=== PATIENT | male | born 1970 | race Two or more races ===

== ENCOUNTER 2021-07-02 13:28 | Inpatient (IN) | payer MEDICAID, OTHER ==
[~2021-07-02] VITALS: Ht 172.7 cm; Wt 51.3 kg
[2021-07-02] MEDS ORDERED: SODIUM CHLORIDE 0.9% 1,000 ML IV ONE ×2 (15:00→16:45)
[2021-07-02] MEDS ORDERED: LEVETIRACETAM 500MG PREMIX 100 ML IV ONE (15:00)
[2021-07-02 16:03] LABS: CHLORIDE 120 mEq/L (98-107)
[2021-07-02 16:06] LABS: BASOPHILS % 0.5 % (0.0-2.0); EOSINOPHILS % 0.1 % (0.0-5.0); HEMATOCRIT. 45.9 % (42.0-52.0); HEMOGLOBIN. 15.5 g/dL (14.0-18.0); LYMPHOCYTES % 10.4 % (20.0-50.0); MEAN CORPUSCULAR HEMOGLOBIN 27.9 pg (28.0-32.0); MEAN CORPUSCULAR VOLUME 82.8 fL (80.0-94.0); MEAN PLATELET VOLUME 9.1 fl (7.4-10.4); MONOCYTES % 4.8 % (2.0-8.0); NEUTROPHILS % 84.2 % (40.0-76.0); PLATELET 482 x1000/uL (130-400); RED BLOOD CELL COUNT 5.54 mill/uL (4.7-6.1); RED CELL DISTRIBUTION WIDTH 16.3 % (11.6-14.6)
[2021-07-02 16:07] LABS: ETHANOL BLOOD < 10 mg/dL
[2021-07-03] MEDS ORDERED: ONDANSETRON HCL 4MG/2ML INJ IV PRN (08:00)
[2021-07-03 08:30] VITALS: BP 117/75
[2021-07-03] MEDS: DEXTROSE 5% WATER 1,000 ML IV SCH (11:15)
[2021-07-03 11:25] LABS: BASOPHILS % 0.2 % (0.0-2.0); EOSINOPHILS % 0.8 % (0.0-5.0); HEMATOCRIT. 37.3 % (42.0-52.0); HEMOGLOBIN. 12.6 g/dL (14.0-18.0); LYMPHOCYTES % 10.6 % (20.0-50.0); MEAN CORPUSCULAR HEMOGLOBIN 28.3 pg (28.0-32.0); MEAN PLATELET VOLUME 8.9 fl (7.4-10.4); MONOCYTES % 6.7 % (2.0-8.0); NEUTROPHILS % 81.7 % (40.0-76.0); PLATELET 438 x1000/uL (130-400); RED BLOOD CELL COUNT 4.44 mill/uL (4.7-6.1); RED CELL DISTRIBUTION WIDTH 16.2 % (11.6-14.6)
[2021-07-03] MEDS: LEVETIRACETAM 500MG TABLET PO SCH ×3 (11:41→21:10)
[2021-07-03 12:00] VITALS: BP 103/72
[2021-07-03 16:00] VITALS: BP 102/77
[2021-07-03] MEDS: CEFTRIAXONE 1,000 MG in DEXTROSE 5% WATER 50 ML IV SCH (16:00)
[2021-07-03 17:20] VITALS: BP 110/55
[2021-07-03 17:45] LABS: *AMPHETAMINES SCREEN URINE NEGATIVE (NEGATIVE); *BARBITURATES SCREEN URINE NEGATIVE (NEGATIVE); *BENZODIAZEPINES SCREEN URINE NEGATIVE (NEGATIVE); *COCAINE SCREEN URINE NEGATIVE (NEGATIVE); METHADONE URINE SCREEN NEGATIVE (NEGATIVE); OPIATES URINE SCREEN NEGATIVE (NEGATIVE); PHENCYCLIDINE URINE SCREEN NEGATIVE (NEGATIVE)
[2021-07-03 17:46] LABS: CANNABINOID URINE SCREEN NEGATIVE (NEGATIVE)
[2021-07-03 18:51] VITALS: BP 102/71
[2021-07-03 20:00] VITALS: BP 109/71
[2021-07-04] VITALS: BP 130/73
[2021-07-04 04:00] VITALS: BP 109/64
[2021-07-04] MEDS: DEXTROSE 5% WATER 1,000 ML IV SCH (05:46)
[2021-07-04 08:00] VITALS: BP 117/83
[2021-07-04] MEDS: LEVETIRACETAM 500MG TABLET PO SCH ×2 (09:00→21:32)
[2021-07-04 10:01] LABS: BASOPHILS % 0.4 % (0.0-2.0); EOSINOPHILS % 0.5 % (0.0-5.0); HEMATOCRIT. 43.5 % (42.0-52.0); HEMOGLOBIN. 14.3 g/dL (14.0-18.0); LYMPHOCYTES % 18.3 % (20.0-50.0); MEAN CORPUSCULAR HEMOGLOBIN 28.3 pg (28.0-32.0); MEAN CORPUSCULAR VOLUME 85.9 fL (80.0-94.0); MEAN PLATELET VOLUME 9.3 fl (7.4-10.4); MONOCYTES % 7.4 % (2.0-8.0); NEUTROPHILS % 73.4 % (40.0-76.0); PLATELET 398 x1000/uL (130-400); RED BLOOD CELL COUNT 5.07 mill/uL (4.7-6.1); RED CELL DISTRIBUTION WIDTH 16.4 % (11.6-14.6)
[2021-07-04 10:09] LABS: CHLORIDE 140 mEq/L (98-107)
[2021-07-04 12:00] VITALS: BP 121/81
[2021-07-04] MEDS: CEFTRIAXONE 1,000 MG in DEXTROSE 5% WATER 50 ML IV SCH (15:37)
[2021-07-04 16:00] VITALS: BP 122/86
[2021-07-04] MEDS ORDERED: LORAZEPAM 2MG/ML CPJ IM NR (16:30)
[2021-07-04] MEDS ORDERED: LORAZEPAM 2MG/ML CPJ IV NR (16:30)
[2021-07-04 20:00] VITALS: BP 109/79
[2021-07-05] VITALS: BP 104/80
[2021-07-05 04:00] VITALS: BP 100/71
[2021-07-05] MEDS: DEXTROSE 5% WATER 1,000 ML IV SCH (04:57)
[2021-07-05 07:53] LABS: BASOPHILS % 0.2 % (0.0-2.0); EOSINOPHILS % 1.4 % (0.0-5.0); HEMATOCRIT. 37.9 % (42.0-52.0); HEMOGLOBIN. 11.9 g/dL (14.0-18.0); LYMPHOCYTES % 21.5 % (20.0-50.0); MEAN CORPUSCULAR HEMOGLOBIN 28.7 pg (28.0-32.0); MEAN CORPUSCULAR VOLUME 91.4 fL (80.0-94.0); MONOCYTES % 8.6 % (2.0-8.0); NEUTROPHILS % 68.3 % (40.0-76.0); PLATELET 309 x1000/uL (130-400); RED BLOOD CELL COUNT 4.15 mill/uL (4.7-6.1)
[2021-07-05 08:00] VITALS: BP 119/79
[2021-07-05] MEDS: RISPERIDONE 0.5MG TABLET PO SCH (08:41)
[2021-07-05] MEDS: LEVETIRACETAM 500MG TABLET PO SCH ×2 (08:41→20:42)
[2021-07-05 12:00] VITALS: BP 122/81
[2021-07-05 12:31] LABS: CHLORIDE 121 mEq/L (98-107)
[2021-07-05 16:00] VITALS: BP 96/61
[2021-07-05] MEDS: CEFTRIAXONE 1,000 MG in DEXTROSE 5% WATER 50 ML IV SCH (16:35)
[2021-07-05 20:00] VITALS: BP 100/70
[2021-07-06] VITALS: BP 95/65
[2021-07-06] MEDS: DEXTROSE 5% WATER 1,000 ML IV SCH ×2 (02:19→20:50)
[2021-07-06 04:00] VITALS: BP 92/49
[2021-07-06 05:45] LABS: CHLORIDE 134 mEq/L (98-107)
[2021-07-06 08:00] VITALS: BP 96/65
[2021-07-06] MEDS: RISPERIDONE 0.5MG TABLET PO SCH (09:28)
[2021-07-06] MEDS: LEVETIRACETAM 500MG TABLET PO SCH ×2 (09:28→20:50)
[2021-07-06 12:00] VITALS: BP 109/80
[2021-07-06 16:00] VITALS: BP 93/60
[2021-07-06] MEDS: CEFTRIAXONE 1,000 MG in DEXTROSE 5% WATER 50 ML IV SCH (16:33)
[2021-07-06 20:00] VITALS: BP 95/67
[2021-07-07] VITALS: BP 94/73
[2021-07-07 04:00] VITALS: BP 117/93
[2021-07-07 07:33] LABS: CHLORIDE 126 mEq/L (98-107)
[2021-07-07 07:34] LABS: INR 1.1; PROTHROMBIN TIME 11.3 sec (9.6-11.0)
[2021-07-07 07:50] LABS: BASOPHILS % 0.3 % (0.0-2.0); EOSINOPHILS % 1.8 % (0.0-5.0); HEMATOCRIT. 36.4 % (42.0-52.0); HEMOGLOBIN. 11.7 g/dL (14.0-18.0); LYMPHOCYTES % 18.3 % (20.0-50.0); MEAN CORPUSCULAR HEMOGLOBIN 27.6 pg (28.0-32.0); MEAN PLATELET VOLUME 10.2 fl (7.4-10.4); NEUTROPHILS % 72.6 % (40.0-76.0); PLATELET 285 x1000/uL (130-400); RED BLOOD CELL COUNT 4.23 mill/uL (4.7-6.1); RED CELL DISTRIBUTION WIDTH 16.8 % (11.6-14.6)
[2021-07-07 08:00] VITALS: BP 102/68
[2021-07-07] MEDS: RISPERIDONE 0.5MG TABLET PO SCH (08:04)
[2021-07-07] MEDS: LEVETIRACETAM 500MG TABLET PO SCH ×2 (08:04→21:31)
[2021-07-07 12:00] VITALS: BP 99/68
[2021-07-07] MEDS ORDERED: MIDAZOLAM HCL 5 MG/5 ML VIAL ONE (12:06)
[2021-07-07] MEDS ORDERED: FENTANYL CITRATE/PF 50MCG/ML 2ML VIAL ONE (12:07)
[2021-07-07] MEDS ORDERED: MIDAZOLAM HCL 5 MG/5 ML VIAL IV PRN (12:12)
[2021-07-07] MEDS: CEFTRIAXONE 1,000 MG in DEXTROSE 5% WATER 50 ML IV SCH (14:53)
[2021-07-07] MEDS: DEXTROSE 5% WATER 1,000 ML IV SCH (14:53)
[2021-07-07 16:00] VITALS: BP 111/70
[2021-07-07 20:00] VITALS: BP 109/65
[2021-07-08] VITALS (7 sets, daily range): BP systolic 93–115; BP diastolic 58–78
[2021-07-08 06:28] LABS: CHLORIDE 128 mEq/L (98-107)
[2021-07-08] MEDS: LEVETIRACETAM 500MG TABLET PO SCH ×2 (09:57→20:57)
[2021-07-08] MEDS: RISPERIDONE 0.5MG TABLET PO SCH (09:57)
[2021-07-08] MEDS: DEXTROSE 5% WATER 1,000 ML IV SCH ×2 (11:39→23:27)
[2021-07-08] MEDS: LORAZEPAM 2MG/ML CPJ IV PRN (20:59)
[2021-07-09] VITALS: BP 93/67
[2021-07-09 04:00] VITALS: BP 99/64
[2021-07-09] MEDS: LORAZEPAM 2MG/ML CPJ IV PRN ×2 (05:31→22:08)
[2021-07-09 07:05] LABS: CHLORIDE 116 mEq/L (98-107)
[2021-07-09 07:16] LABS: BASOPHILS % 0.2 % (0.0-2.0); EOSINOPHILS % 2.9 % (0.0-5.0); HEMATOCRIT. 32.7 % (42.0-52.0); HEMOGLOBIN. 10.8 g/dL (14.0-18.0); MEAN CORPUSCULAR HEMOGLOBIN 28.3 pg (28.0-32.0); MEAN CORPUSCULAR VOLUME 85.2 fL (80.0-94.0); MEAN PLATELET VOLUME 10.2 fl (7.4-10.4); MONOCYTES % 7.6 % (2.0-8.0); NEUTROPHILS % 68.3 % (40.0-76.0); PLATELET 213 x1000/uL (130-400); RED BLOOD CELL COUNT 3.83 mill/uL (4.7-6.1); RED CELL DISTRIBUTION WIDTH 16.4 % (11.6-14.6)
[2021-07-09 08:00] VITALS: BP 91/64
[2021-07-09] MEDS: LEVETIRACETAM 500MG TABLET PO SCH ×2 (09:13→22:02)
[2021-07-09] MEDS: RISPERIDONE 1MG TABLET PO SCH (09:13)
[2021-07-09 12:00] VITALS: BP 103/69
[2021-07-09 16:00] VITALS: BP 95/61
[2021-07-09 20:00] VITALS: BP 135/81
[2021-07-10] VITALS: BP 98/62
[2021-07-10] MEDS: ACETAMINOPHEN 325MG TABLET PO PRN (00:44)
[2021-07-10 04:00] VITALS: BP 105/63
[2021-07-10] MEDS: LORAZEPAM 2MG/ML CPJ IV PRN (05:59)
[2021-07-10 08:00] VITALS: BP 102/65
[2021-07-10] MEDS: LEVETIRACETAM 500MG TABLET PO SCH ×2 (09:56→21:50)
[2021-07-10] MEDS: GUAIFENESIN 600MG ER TABLET PO SCH ×2 (09:56→21:50)
[2021-07-10] MEDS: RISPERIDONE 1MG TABLET PO SCH (09:56)
[2021-07-10] MEDS ORDERED: SODIUM CHLORIDE 0.9% 500 ML IV ONE (10:15)
[2021-07-10] MEDS: MIDODRINE HCL 5MG TABLET PO SCH ×3 (10:39→19:21)
[2021-07-10 12:00] VITALS: BP 96/59
[2021-07-10 16:00] VITALS: BP 91/64
[2021-07-10] MEDS ORDERED: THIAMINE HCL 100 MG in SODIUM CHLORIDE 0.9% 49 ML IV SCH (17:00)
[2021-07-10 17:17] LABS: CHLORIDE 111 mEq/L (98-107)
[2021-07-10] MEDS: THIAMINE HCL 100 MG in SODIUM CHLORIDE 0.9% 49 ML IV SCH (19:22)
[2021-07-10 20:00] VITALS: BP 91/61
[2021-07-10] MEDS: LACTULOSE 20G/30ML UDC PO SCH (21:50)
[2021-07-11] VITALS: BP 99/58
[2021-07-11 04:00] VITALS: BP 92/63
[2021-07-11] MEDS: LACTULOSE 20G/30ML UDC PO SCH (07:43)
[2021-07-11 08:00] VITALS: BP 90/58
[2021-07-11 08:31] LABS: BASOPHILS % 0.2 % (0.0-2.0); HEMATOCRIT. 34.2 % (42.0-52.0); HEMOGLOBIN. 11.4 g/dL (14.0-18.0); LYMPHOCYTES % 20.7 % (20.0-50.0); MEAN CORPUSCULAR HEMOGLOBIN 28.1 pg (28.0-32.0); MEAN CORPUSCULAR VOLUME 84.1 fL (80.0-94.0); MEAN PLATELET VOLUME 10.2 fl (7.4-10.4); NEUTROPHILS % 67.1 % (40.0-76.0); PLATELET 255 x1000/uL (130-400); RED BLOOD CELL COUNT 4.07 mill/uL (4.7-6.1); RED CELL DISTRIBUTION WIDTH 15.9 % (11.6-14.6)
[2021-07-11 08:42] LABS: CHLORIDE 113 mEq/L (98-107)
[2021-07-11] MEDS: GUAIFENESIN 600MG ER TABLET PO SCH ×2 (08:52→22:08)
[2021-07-11] MEDS: LEVETIRACETAM 500MG TABLET PO SCH ×2 (08:52→22:02)
[2021-07-11] MEDS: MIDODRINE HCL 5MG TABLET PO SCH ×3 (08:53→17:09)
[2021-07-11 12:00] VITALS: BP 94/59
[2021-07-11 16:00] VITALS: BP 95/64
[2021-07-11] MEDS: THIAMINE HCL 100 MG in SODIUM CHLORIDE 0.9% 49 ML IV SCH (17:09)
[2021-07-11 20:00] VITALS: BP 93/62
[2021-07-12] VITALS: BP 103/64
[2021-07-12 04:00] VITALS: BP 95/64
[2021-07-12] MEDS: GUAIFENESIN 600MG ER TABLET PO SCH (09:39)
[2021-07-12] MEDS: MIDODRINE HCL 5MG TABLET PO SCH ×3 (09:39→17:22)
[2021-07-12] MEDS: LEVETIRACETAM 500MG TABLET PO SCH ×2 (09:39→20:24)
[2021-07-12 10:04] LABS: BASOPHILS % 0.4 % (0.0-2.0); EOSINOPHILS % 2.2 % (0.0-5.0); HEMOGLOBIN. 11.4 g/dL (14.0-18.0); LYMPHOCYTES % 22.2 % (20.0-50.0); MEAN CORPUSCULAR HEMOGLOBIN 28.3 pg (28.0-32.0); MEAN CORPUSCULAR VOLUME 84.6 fL (80.0-94.0); MEAN PLATELET VOLUME 9.6 fl (7.4-10.4); NEUTROPHILS % 65.2 % (40.0-76.0); PLATELET 302 x1000/uL (130-400); RED BLOOD CELL COUNT 4.02 mill/uL (4.7-6.1); RED CELL DISTRIBUTION WIDTH 15.9 % (11.6-14.6)
[2021-07-12 10:18] LABS: CHLORIDE 107 mEq/L (98-107)
[2021-07-12] MEDS ORDERED: GUAIFENESIN 200MG/10ML SUGAR FREE UDC PO PRN (12:00)
[2021-07-12 20:00] VITALS: BP 112/75
[2021-07-12] MEDS: THIAMINE HCL 100 MG in SODIUM CHLORIDE 0.9% 49 ML IV SCH (22:35)
[2021-07-13] VITALS: BP 109/70
[2021-07-13 04:00] VITALS: BP 108/66
[2021-07-13 08:00] VITALS: BP 97/59
[2021-07-13] MEDS: MIDODRINE HCL 5MG TABLET PO SCH ×3 (09:48→17:00)
[2021-07-13] MEDS: LEVETIRACETAM 500MG TABLET PO SCH ×2 (09:49→21:14)
[2021-07-13 12:00] VITALS: BP 101/71
[2021-07-13 16:00] VITALS: BP 107/66
[2021-07-13] MEDS: ENOXAPARIN 30MG/0.3ML SYR SUBCUT SCH (17:00)
[2021-07-13] MEDS: THIAMINE HCL 100 MG in SODIUM CHLORIDE 0.9% 49 ML IV SCH (18:06)
[2021-07-13 19:38] LABS: HEMATOCRIT. 33.3 % (42.0-52.0); HEMOGLOBIN. 11.5 g/dL (14.0-18.0); MEAN CORPUSCULAR HEMOGLOBIN 28.5 pg (28.0-32.0); MEAN CORPUSCULAR VOLUME 82.7 fL (80.0-94.0); MEAN PLATELET VOLUME 9.5 fl (7.4-10.4); PLATELET 310 x1000/uL (130-400); RED BLOOD CELL COUNT 4.02 mill/uL (4.7-6.1); RED CELL DISTRIBUTION WIDTH 15.7 % (11.6-14.6)
[2021-07-13 19:41] LABS: CHLORIDE 104 mEq/L (98-107)
[2021-07-13 20:00] VITALS: BP 130/57
[2021-07-13 22:34] LABS: PLATELET ESTIMATE NORMAL
[2021-07-14] VITALS: BP 101/73
[2021-07-14 04:00] VITALS: BP 92/57
[2021-07-14 08:00] VITALS: BP 98/69
[2021-07-14] MEDS: LEVETIRACETAM 500MG TABLET PO SCH ×2 (09:59→21:19)
[2021-07-14] MEDS: MIDODRINE HCL 5MG TABLET PO SCH ×3 (09:59→17:55)
[2021-07-14 12:00] VITALS: BP 107/70
[2021-07-14 16:00] VITALS: BP 92/66
[2021-07-14] MEDS: ENOXAPARIN 30MG/0.3ML SYR SUBCUT SCH (17:00)
[2021-07-14] MEDS: THIAMINE HCL 100 MG in SODIUM CHLORIDE 0.9% 49 ML IV SCH (17:55)
[2021-07-14 19:27] LABS: CLARITY URINE CLEAR (CLEAR); COLOR URINE YELLOW (YELLOW); KETONES URINE NEGATIVE (NEGATIVE); LEUKOCYTE ESTERASE URINE NEGATIVE (NEGATIVE); NITRITE URINE NEGATIVE (NEGATIVE); OCCULT BLOOD URINE NEGATIVE (NEGATIVE); PH URINE 5.5 (4.5-8.0); PROTEIN URINE NEGATIVE (NEGATIVE); SPECIFIC GRAVITY URINE 1.013 (1.005-1.030)
[2021-07-14 20:00] VITALS: BP 100/65
[2021-07-14] MEDS: ACETAMINOPHEN 325MG TABLET PO PRN (21:19)
[2021-07-15] VITALS (7 sets, daily range): BP systolic 78–100; BP diastolic 49–100
[2021-07-15] MEDS: SODIUM CHLORIDE 0.9% 1,000 ML IV SCH ×3 (00:52→20:53)
[2021-07-15] MEDS: MIDODRINE HCL 5MG TABLET PO SCH ×3 (09:46→17:30)
[2021-07-15] MEDS: LEVETIRACETAM 500MG TABLET PO SCH ×2 (09:46→20:53)
[2021-07-15] MEDS: ENOXAPARIN 30MG/0.3ML SYR SUBCUT SCH (17:26)
[2021-07-16 00:02] VITALS: BP 96/58
[2021-07-16 04:00] VITALS: BP 91/52
[2021-07-16] MEDS: SODIUM CHLORIDE 0.9% 1,000 ML IV SCH ×2 (06:52→18:12)
[2021-07-16 07:58] VITALS: BP 86/53
[2021-07-16] MEDS: LEVETIRACETAM 500MG TABLET PO SCH ×2 (09:49→21:08)
[2021-07-16] MEDS: MIDODRINE HCL 5MG TABLET PO SCH ×3 (09:50→18:12)
[2021-07-16 12:00] VITALS: BP 109/72
[2021-07-16 15:56] VITALS: BP 87/59
[2021-07-16] MEDS: ENOXAPARIN 30MG/0.3ML SYR SUBCUT SCH (18:11)
[2021-07-16 20:00] VITALS: BP 102/69
[2021-07-17] VITALS (7 sets, daily range): BP systolic 82–111; BP diastolic 52–71
[2021-07-17] MEDS: SODIUM CHLORIDE 0.9% 1,000 ML IV SCH ×3 (02:57→23:07)
[2021-07-17 07:11] LABS: BASOPHILS % 0.6 % (0.0-2.0); EOSINOPHILS % 1.9 % (0.0-5.0); HEMATOCRIT. 31.4 % (42.0-52.0); HEMOGLOBIN. 10.6 g/dL (14.0-18.0); LYMPHOCYTES % 31.3 % (20.0-50.0); MEAN CORPUSCULAR HEMOGLOBIN 28.2 pg (28.0-32.0); MEAN CORPUSCULAR VOLUME 83.6 fL (80.0-94.0); MEAN PLATELET VOLUME 9.1 fl (7.4-10.4); MONOCYTES % 7.9 % (2.0-8.0); NEUTROPHILS % 58.3 % (40.0-76.0); PLATELET 339 x1000/uL (130-400); RED BLOOD CELL COUNT 3.76 mill/uL (4.7-6.1); RED CELL DISTRIBUTION WIDTH 15.6 % (11.6-14.6)
[2021-07-17 07:53] LABS: CHLORIDE 107 mEq/L (98-107)
[2021-07-17] MEDS: LEVETIRACETAM 500MG TABLET PO SCH ×2 (09:07→21:21)
[2021-07-17] MEDS: MIDODRINE HCL 5MG TABLET PO SCH ×3 (09:07→17:09)
[2021-07-17] MEDS: ACETAMINOPHEN 325MG TABLET PO PRN (17:09)
[2021-07-17] MEDS: ENOXAPARIN 30MG/0.3ML SYR SUBCUT SCH (17:24)
[2021-07-18] VITALS: BP 96/59
[2021-07-18 04:00] VITALS: BP 99/46
[2021-07-18 06:24] LABS: CHLORIDE 108 mEq/L (98-107)
[2021-07-18 06:42] LABS: BASOPHILS % 0.5 % (0.0-2.0); EOSINOPHILS % 2.1 % (0.0-5.0); HEMATOCRIT. 29.6 % (42.0-52.0); HEMOGLOBIN. 10.4 g/dL (14.0-18.0); LYMPHOCYTES % 33.6 % (20.0-50.0); MEAN CORPUSCULAR HEMOGLOBIN 29.1 pg (28.0-32.0); MEAN CORPUSCULAR VOLUME 82.4 fL (80.0-94.0); MEAN PLATELET VOLUME 8.9 fl (7.4-10.4); MONOCYTES % 9.4 % (2.0-8.0); NEUTROPHILS % 54.4 % (40.0-76.0); PLATELET 333 x1000/uL (130-400); RED BLOOD CELL COUNT 3.59 mill/uL (4.7-6.1); RED CELL DISTRIBUTION WIDTH 15.8 % (11.6-14.6)
[2021-07-18] MEDS: SODIUM CHLORIDE 0.9% 1,000 ML IV SCH ×2 (09:04→18:03)
[2021-07-18] MEDS: LEVETIRACETAM 500MG TABLET PO SCH ×2 (09:07→21:31)
[2021-07-18] MEDS: MIDODRINE HCL 5MG TABLET PO SCH ×3 (09:07→17:20)
[2021-07-18] MEDS: METOCLOPRAMIDE HCL 10MG/2ML VIAL IV SCH ×3 (14:23→23:48)
[2021-07-18] MEDS: ENOXAPARIN 30MG/0.3ML SYR SUBCUT SCH (17:19)
[2021-07-18 20:00] VITALS: BP 97/66
[2021-07-19] VITALS: BP_SYST 111; BP_SYST 114; BP_DIAS 71
[2021-07-19] MEDS: SODIUM CHLORIDE 0.9% 1,000 ML IV SCH ×2 (03:40→16:35)
[2021-07-19 04:00] VITALS: BP 121/72
[2021-07-19] MEDS: METOCLOPRAMIDE HCL 10MG/2ML VIAL IV SCH ×3 (05:13→19:02)
[2021-07-19 08:00] VITALS: BP 97/60
[2021-07-19] MEDS: LEVETIRACETAM 500MG TABLET PO SCH ×2 (08:42→20:48)
[2021-07-19] MEDS: MIDODRINE HCL 5MG TABLET PO SCH ×3 (08:43→16:25)
[2021-07-19] MEDS: ACETAMINOPHEN 325MG TABLET PO PRN (08:44)
[2021-07-19 12:00] VITALS: BP 109/59
[2021-07-19] MEDS: LACTULOSE 20G/30ML UDC PO SCH ×2 (13:43→20:48)
[2021-07-19 16:00] VITALS: BP 98/53
[2021-07-19] MEDS: ENOXAPARIN 30MG/0.3ML SYR SUBCUT SCH (16:25)
[2021-07-19 17:42] LABS: CHLORIDE 108 mEq/L (98-107)
[2021-07-19 17:44] LABS: BASOPHILS % 0.5 % (0.0-2.0); EOSINOPHILS % 2.2 % (0.0-5.0); HEMATOCRIT. 29.1 % (42.0-52.0); HEMOGLOBIN. 9.9 g/dL (14.0-18.0); LYMPHOCYTES % 34.5 % (20.0-50.0); MEAN CORPUSCULAR HEMOGLOBIN 28.3 pg (28.0-32.0); MEAN CORPUSCULAR VOLUME 83.3 fL (80.0-94.0); MEAN PLATELET VOLUME 8.8 fl (7.4-10.4); MONOCYTES % 5.1 % (2.0-8.0); NEUTROPHILS % 57.7 % (40.0-76.0); PLATELET 375 x1000/uL (130-400); RED BLOOD CELL COUNT 3.49 mill/uL (4.7-6.1); RED CELL DISTRIBUTION WIDTH 15.5 % (11.6-14.6)
[2021-07-19 20:00] VITALS: BP 99/65
[2021-07-20] VITALS: BP 114/71
[2021-07-20] MEDS: METOCLOPRAMIDE HCL 10MG/2ML VIAL IV SCH ×4 (00:40→17:15)
[2021-07-20] MEDS: SODIUM CHLORIDE 0.9% 1,000 ML IV SCH ×3 (00:40→21:45)
[2021-07-20 04:00] VITALS: BP 113/75
[2021-07-20] MEDS: LACTULOSE 20G/30ML UDC PO SCH ×3 (05:33→21:44)
[2021-07-20 06:46] LABS: CHLORIDE 109 mEq/L (98-107)
[2021-07-20 07:55] LABS: BASOPHILS % 1.5 % (0.0-2.0); EOSINOPHILS % 2.3 % (0.0-5.0); HEMATOCRIT. 34.6 % (42.0-52.0); HEMOGLOBIN. 11.1 g/dL (14.0-18.0); LYMPHOCYTES % 28.9 % (20.0-50.0); MEAN CORPUSCULAR HEMOGLOBIN 27.9 pg (28.0-32.0); MEAN CORPUSCULAR VOLUME 86.4 fL (80.0-94.0); MEAN PLATELET VOLUME 8.8 fl (7.4-10.4); MONOCYTES % 5.5 % (2.0-8.0); NEUTROPHILS % 61.8 % (40.0-76.0); PLATELET 352 x1000/uL (130-400); RED CELL DISTRIBUTION WIDTH 15.8 % (11.6-14.6)
[2021-07-20 08:00] VITALS: BP 98/65
[2021-07-20] MEDS: LEVETIRACETAM 500MG TABLET PO SCH ×2 (08:52→20:46)
[2021-07-20] MEDS: MIDODRINE HCL 5MG TABLET PO SCH ×3 (08:52→17:15)
[2021-07-20 12:00] VITALS: BP 114/71
[2021-07-20 16:00] VITALS: BP 113/78
[2021-07-20] MEDS: ENOXAPARIN 30MG/0.3ML SYR SUBCUT SCH (17:15)
[2021-07-20 20:00] VITALS: BP 123/77
[2021-07-21] VITALS: BP 122/77
[2021-07-21] MEDS: METOCLOPRAMIDE HCL 10MG/2ML VIAL IV SCH ×5 (00:08→23:33)
[2021-07-21 04:00] VITALS: BP 99/65
[2021-07-21] MEDS: LACTULOSE 20G/30ML UDC PO SCH ×3 (05:16→20:48)
[2021-07-21] MEDS: SODIUM CHLORIDE 0.9% 1,000 ML IV SCH ×2 (05:17→18:13)
[2021-07-21 08:23] VITALS: BP 100/66
[2021-07-21] MEDS: LEVETIRACETAM 500MG TABLET PO SCH ×2 (09:05→20:01)
[2021-07-21] MEDS: MIDODRINE HCL 5MG TABLET PO SCH ×3 (09:05→18:13)
[2021-07-21 12:14] VITALS: BP 109/63
[2021-07-21 16:57] VITALS: BP 95/56
[2021-07-21] MEDS: ENOXAPARIN 30MG/0.3ML SYR SUBCUT SCH (18:12)
[2021-07-21 20:00] VITALS: BP 89/53
[2021-07-22] VITALS: BP 105/66
[2021-07-22] MEDS: SODIUM CHLORIDE 0.9% 1,000 ML IV SCH ×3 (03:00→23:00)
[2021-07-22 04:00] VITALS: BP 97/63
[2021-07-22] MEDS: LACTULOSE 20G/30ML UDC PO SCH ×3 (05:13→21:22)
[2021-07-22] MEDS: METOCLOPRAMIDE HCL 10MG/2ML VIAL IV SCH ×3 (05:14→17:32)
[2021-07-22 08:00] VITALS: BP 114/75
[2021-07-22] MEDS: LEVETIRACETAM 500MG TABLET PO SCH ×2 (09:34→21:22)
[2021-07-22] MEDS: MIDODRINE HCL 5MG TABLET PO SCH ×3 (09:44→17:32)
[2021-07-22 12:00] VITALS: BP 92/53
[2021-07-22 16:00] VITALS: BP 106/63
[2021-07-22] MEDS: ENOXAPARIN 30MG/0.3ML SYR SUBCUT SCH (17:32)
[2021-07-22 20:00] VITALS: BP 94/59
[2021-07-23] VITALS: BP 111/72
[2021-07-23] MEDS: METOCLOPRAMIDE HCL 10MG/2ML VIAL IV SCH ×4 (00:32→17:31)
[2021-07-23 04:00] VITALS: BP 104/71
[2021-07-23] MEDS: LACTULOSE 20G/30ML UDC PO SCH ×3 (05:48→21:56)
[2021-07-23 08:00] VITALS: BP 97/61
[2021-07-23] MEDS: LEVETIRACETAM 500MG TABLET PO SCH ×2 (09:54→21:56)
[2021-07-23] MEDS: MIDODRINE HCL 5MG TABLET PO SCH ×3 (09:54→17:31)
[2021-07-23] MEDS: SODIUM CHLORIDE 0.9% 1,000 ML IV SCH ×2 (10:08→19:03)
[2021-07-23 12:00] VITALS: BP 122/67
[2021-07-23] MEDS: DOCUSATE SODIUM SUGAR FREE 100MG/10ML UDC GT SCH (12:15)
[2021-07-23] MEDS ORDERED: POLYETHYLENE GLYCOL 3350 (17GM) 1 DOSE PACK PO NR (12:15)
[2021-07-23 16:00] VITALS: BP 95/50
[2021-07-23] MEDS: ENOXAPARIN 30MG/0.3ML SYR SUBCUT SCH (17:36)
[2021-07-23 20:00] VITALS: BP 95/64
[2021-07-23] MEDS: SENNOSIDES 8.6MG TABLET GT SCH (21:00)
[2021-07-24] VITALS: BP 111/71
[2021-07-24] MEDS: METOCLOPRAMIDE HCL 10MG/2ML VIAL IV SCH ×4 (00:44→18:13)
[2021-07-24 04:00] VITALS: BP 98/62
[2021-07-24] MEDS: SODIUM CHLORIDE 0.9% 1,000 ML IV SCH ×2 (05:00→16:10)
[2021-07-24 06:24] LABS: BASOPHILS % 0.5 % (0.0-2.0); EOSINOPHILS % 2.7 % (0.0-5.0); HEMOGLOBIN. 9.3 g/dL (14.0-18.0); LYMPHOCYTES % 24.2 % (20.0-50.0); MEAN CORPUSCULAR HEMOGLOBIN 29.2 pg (28.0-32.0); MEAN CORPUSCULAR VOLUME 84.8 fL (80.0-94.0); MEAN PLATELET VOLUME 8.9 fl (7.4-10.4); MONOCYTES % 11.6 % (2.0-8.0); PLATELET 358 x1000/uL (130-400); RED BLOOD CELL COUNT 3.18 mill/uL (4.7-6.1); RED CELL DISTRIBUTION WIDTH 16.2 % (11.6-14.6)
[2021-07-24 06:36] LABS: CHLORIDE 106 mEq/L (98-107)
[2021-07-24] MEDS: LACTULOSE 20G/30ML UDC PO SCH ×3 (06:48→20:53)
[2021-07-24 08:00] VITALS: BP 104/67
[2021-07-24] MEDS: DOCUSATE SODIUM SUGAR FREE 100MG/10ML UDC GT SCH (08:59)
[2021-07-24] MEDS: LEVETIRACETAM 500MG TABLET PO SCH ×2 (08:59→20:53)
[2021-07-24] MEDS: MIDODRINE HCL 5MG TABLET PO SCH ×3 (08:59→18:12)
[2021-07-24] MEDS: LORAZEPAM 2MG/ML CPJ IV PRN (11:16)
[2021-07-24 12:00] VITALS: BP 118/76
[2021-07-24] MEDS ORDERED: HALOPERIDOL LACTATE 5MG/ML VIAL IM NR (14:30)
[2021-07-24 16:00] VITALS: BP 116/74
[2021-07-24] MEDS: ENOXAPARIN 30MG/0.3ML SYR SUBCUT SCH (18:12)
[2021-07-24] MEDS: RISPERIDONE 0.5MG TABLET PO SCH (18:13)
[2021-07-24 20:00] VITALS: BP_SYST 102; BP_SYST 82; BP_DIAS 56; BP_DIAS 72
[2021-07-24] MEDS: SENNOSIDES 8.6MG TABLET GT SCH (20:53)
[2021-07-25] VITALS: BP 100/58
[2021-07-25] MEDS: SODIUM CHLORIDE 0.9% 1,000 ML IV SCH ×3 (01:00→21:44)
[2021-07-25 04:00] VITALS: BP 95/58
[2021-07-25] MEDS: METOCLOPRAMIDE HCL 10MG/2ML VIAL IV SCH ×3 (05:41→12:31)
[2021-07-25] MEDS: LACTULOSE 20G/30ML UDC PO SCH ×3 (05:41→21:43)
[2021-07-25 07:38] LABS: BASOPHILS % 0.2 % (0.0-2.0); EOSINOPHILS % 2.4 % (0.0-5.0); HEMATOCRIT. 29.2 % (42.0-52.0); HEMOGLOBIN. 9.9 g/dL (14.0-18.0); LYMPHOCYTES % 18.3 % (20.0-50.0); MEAN CORPUSCULAR HEMOGLOBIN 28.9 pg (28.0-32.0); MEAN CORPUSCULAR VOLUME 85.3 fL (80.0-94.0); MEAN PLATELET VOLUME 8.4 fl (7.4-10.4); NEUTROPHILS % 69.1 % (40.0-76.0); PLATELET 421 x1000/uL (130-400); RED BLOOD CELL COUNT 3.43 mill/uL (4.7-6.1); RED CELL DISTRIBUTION WIDTH 16.3 % (11.6-14.6)
[2021-07-25 08:00] VITALS: BP 117/70
[2021-07-25] MEDS: DOCUSATE SODIUM SUGAR FREE 100MG/10ML UDC GT SCH (08:22)
[2021-07-25] MEDS: MIDODRINE HCL 5MG TABLET PO SCH ×3 (08:22→18:04)
[2021-07-25] MEDS: RISPERIDONE 0.5MG TABLET PO SCH ×2 (08:22→18:04)
[2021-07-25] MEDS: LEVETIRACETAM 500MG TABLET PO SCH ×2 (08:22→21:43)
[2021-07-25 09:44] LABS: CHLORIDE 106 mEq/L (98-107)
[2021-07-25] MEDS: LORAZEPAM 2MG/ML CPJ IV PRN (11:57)
[2021-07-25 12:00] VITALS: BP 116/67
[2021-07-25 16:00] VITALS: BP 103/70
[2021-07-25] MEDS: ENOXAPARIN 30MG/0.3ML SYR SUBCUT SCH (18:05)
[2021-07-25 20:00] VITALS: BP 82/56
[2021-07-25] MEDS: SENNOSIDES 8.6MG TABLET GT SCH (21:43)
[2021-07-26] MEDS: LACTULOSE 20G/30ML UDC PO SCH ×3 (05:48→21:26)
[2021-07-26] MEDS: SODIUM CHLORIDE 0.9% 1,000 ML IV SCH ×2 (07:24→17:26)
[2021-07-26 08:00] VITALS: BP 101/69
[2021-07-26] MEDS: RISPERIDONE 0.5MG TABLET PO SCH ×2 (08:14→17:26)
[2021-07-26] MEDS: MIDODRINE HCL 5MG TABLET PO SCH ×3 (08:14→17:25)
[2021-07-26] MEDS: LEVETIRACETAM 500MG TABLET PO SCH ×2 (08:14→21:26)
[2021-07-26] MEDS: DOCUSATE SODIUM SUGAR FREE 100MG/10ML UDC GT SCH (08:15)
[2021-07-26] MEDS: LORAZEPAM 2MG/ML CPJ IV PRN (11:55)
[2021-07-26 12:00] VITALS: BP 97/71
[2021-07-26 16:00] VITALS: BP 107/68
[2021-07-26] MEDS: ENOXAPARIN 30MG/0.3ML SYR SUBCUT SCH ×2 (17:00→17:26)
[2021-07-26 20:00] VITALS: BP 110/72
[2021-07-26] MEDS: SENNOSIDES 8.6MG TABLET GT SCH (21:26)
[2021-07-27] VITALS: BP 100/61
[2021-07-27] MEDS: SODIUM CHLORIDE 0.9% 1,000 ML IV SCH ×3 (03:59→23:07)
[2021-07-27 04:00] VITALS: BP 107/69
[2021-07-27] MEDS: LACTULOSE 20G/30ML UDC PO SCH ×3 (05:04→21:20)
[2021-07-27 08:00] VITALS: BP 105/69
[2021-07-27] MEDS: LEVETIRACETAM 500MG TABLET PO SCH ×2 (09:36→21:00)
[2021-07-27] MEDS: DOCUSATE SODIUM SUGAR FREE 100MG/10ML UDC GT SCH (09:36)
[2021-07-27] MEDS: MIDODRINE HCL 5MG TABLET PO SCH ×3 (09:36→17:42)
[2021-07-27] MEDS: RISPERIDONE 0.5MG TABLET PO SCH ×2 (09:37→17:41)
[2021-07-27] MEDS: LORAZEPAM 2MG/ML CPJ IV PRN (11:54)
[2021-07-27 12:00] VITALS: BP 90/52
[2021-07-27 16:00] VITALS: BP 93/57
[2021-07-27] MEDS: ENOXAPARIN 30MG/0.3ML SYR SUBCUT SCH ×2 (17:00→17:58)
[2021-07-27 20:00] VITALS: BP 99/69
[2021-07-27] MEDS: SENNOSIDES 8.6MG TABLET GT SCH (21:00)
[2021-07-28] VITALS: BP 101/69
[2021-07-28 04:00] VITALS: BP 91/50
[2021-07-28] MEDS: LACTULOSE 20G/30ML UDC PO SCH ×3 (05:43→21:56)
[2021-07-28 08:00] VITALS: BP 90/50
[2021-07-28] MEDS: DOCUSATE SODIUM SUGAR FREE 100MG/10ML UDC GT SCH (08:58)
[2021-07-28] MEDS: RISPERIDONE 0.5MG TABLET PO SCH ×2 (08:59→17:27)
[2021-07-28] MEDS: MIDODRINE HCL 5MG TABLET PO SCH ×3 (08:59→17:27)
[2021-07-28] MEDS: LEVETIRACETAM 500MG TABLET PO SCH ×2 (08:59→21:57)
[2021-07-28] MEDS: SODIUM CHLORIDE 0.9% 1,000 ML IV SCH ×2 (08:59→19:06)
[2021-07-28 12:00] VITALS: BP 95/55
[2021-07-28 16:00] VITALS: BP 98/61
[2021-07-28 20:00] VITALS: BP 88/58
[2021-07-28] MEDS: SENNOSIDES 8.6MG TABLET GT SCH (21:56)
[2021-07-29] VITALS: BP 86/54
[2021-07-29 04:00] VITALS: BP 96/64
[2021-07-29] MEDS: LACTULOSE 20G/30ML UDC PO SCH ×3 (06:26→21:53)
[2021-07-29] MEDS: SODIUM CHLORIDE 0.9% 1,000 ML IV SCH ×2 (06:27→15:00)
[2021-07-29 08:14] VITALS: BP 98/62
[2021-07-29] MEDS: DOCUSATE SODIUM SUGAR FREE 100MG/10ML UDC GT SCH (09:27)
[2021-07-29] MEDS: MIDODRINE HCL 5MG TABLET PO SCH ×3 (09:27→18:22)
[2021-07-29] MEDS: LEVETIRACETAM 500MG TABLET PO SCH ×2 (09:27→21:53)
[2021-07-29] MEDS: RISPERIDONE 0.5MG TABLET PO SCH ×2 (09:27→18:22)
[2021-07-29 12:28] VITALS: BP 90/60
[2021-07-29 16:00] VITALS: BP 92/55
[2021-07-29] MEDS: ENOXAPARIN 30MG/0.3ML SYR SUBCUT SCH (18:21)
[2021-07-29 20:00] VITALS: BP 101/64
[2021-07-29] MEDS: SENNOSIDES 8.6MG TABLET GT SCH (21:53)
[2021-07-30] VITALS: BP 92/58
[2021-07-30] MEDS: SODIUM CHLORIDE 0.9% 1,000 ML IV SCH ×3 (01:00→21:35)
[2021-07-30 04:00] VITALS: BP 95/60
[2021-07-30] MEDS: LACTULOSE 20G/30ML UDC PO SCH ×3 (06:00→21:33)
[2021-07-30 06:25] LABS: CHLORIDE 110 mEq/L (98-107)
[2021-07-30 06:52] LABS: BASOPHILS % 0.5 % (0.0-2.0); EOSINOPHILS % 3.4 % (0.0-5.0); HEMATOCRIT. 30.1 % (42.0-52.0); HEMOGLOBIN. 10.1 g/dL (14.0-18.0); LYMPHOCYTES % 26.4 % (20.0-50.0); MEAN CORPUSCULAR HEMOGLOBIN 28.9 pg (28.0-32.0); MEAN CORPUSCULAR VOLUME 85.7 fL (80.0-94.0); MEAN PLATELET VOLUME 8.4 fl (7.4-10.4); MONOCYTES % 8.9 % (2.0-8.0); NEUTROPHILS % 60.8 % (40.0-76.0); PLATELET 434 x1000/uL (130-400); RED BLOOD CELL COUNT 3.51 mill/uL (4.7-6.1); RED CELL DISTRIBUTION WIDTH 16.1 % (11.6-14.6)
[2021-07-30 08:00] VITALS: BP 85/57
[2021-07-30] MEDS: RISPERIDONE 0.5MG TABLET PO SCH ×2 (08:43→16:56)
[2021-07-30] MEDS: LEVETIRACETAM 500MG TABLET PO SCH ×2 (08:43→21:33)
[2021-07-30] MEDS: MIDODRINE HCL 5MG TABLET PO SCH ×3 (08:44→16:57)
[2021-07-30] MEDS: DOCUSATE SODIUM SUGAR FREE 100MG/10ML UDC GT SCH (08:45)
[2021-07-30 12:00] VITALS: BP 94/88
[2021-07-30 16:00] VITALS: BP 93/58
[2021-07-30] MEDS: ENOXAPARIN 30MG/0.3ML SYR SUBCUT SCH (16:56)
[2021-07-30 20:00] VITALS: BP 104/62
[2021-07-30] MEDS: SENNOSIDES 8.6MG TABLET GT SCH (21:33)
[2021-07-31] VITALS: BP 93/55
[2021-07-31 04:00] VITALS: BP 93/63
[2021-07-31] MEDS: LACTULOSE 20G/30ML UDC PO SCH ×3 (06:15→21:02)
[2021-07-31] MEDS: SODIUM CHLORIDE 0.9% 1,000 ML IV SCH ×2 (06:16→16:56)
[2021-07-31 08:00] VITALS: BP 101/65
[2021-07-31] MEDS: LEVETIRACETAM 500MG TABLET PO SCH (08:18)
[2021-07-31] MEDS: RISPERIDONE 0.5MG TABLET PO SCH ×2 (08:18→16:55)
[2021-07-31] MEDS: MIDODRINE HCL 5MG TABLET PO SCH ×3 (08:19→16:55)
[2021-07-31] MEDS: DOCUSATE SODIUM SUGAR FREE 100MG/10ML UDC GT SCH (08:19)
[2021-07-31 12:00] VITALS: BP 96/62
[2021-07-31 16:00] VITALS: BP 97/64
[2021-07-31] MEDS: ENOXAPARIN 30MG/0.3ML SYR SUBCUT SCH (17:00)
[2021-07-31] MEDS ORDERED: POLYETHYLENE GLYCOL 3350 (17GM) 1 DOSE PACK PO SCH (17:15)
[2021-07-31 20:00] VITALS: BP 98/55
[2021-07-31] MEDS: SENNOSIDES 8.6MG TABLET GT SCH (21:02)
[2021-08-01] VITALS: BP 106/66
[2021-08-01] MEDS: SODIUM CHLORIDE 0.9% 1,000 ML IV SCH ×3 (03:00→23:00)
[2021-08-01 04:00] VITALS: BP 106/70
[2021-08-01] MEDS: LACTULOSE 20G/30ML UDC PO SCH ×4 (05:18→23:00)
[2021-08-01 08:00] VITALS: BP 91/60
[2021-08-01] MEDS: DOCUSATE SODIUM SUGAR FREE 100MG/10ML UDC GT SCH (09:00)
[2021-08-01] MEDS: MIDODRINE HCL 5MG TABLET PO SCH ×3 (09:11→18:21)
[2021-08-01] MEDS: RISPERIDONE 0.5MG TABLET PO SCH ×2 (09:11→18:23)
[2021-08-01 10:20] LABS: CHLORIDE 106 mEq/L (98-107)
[2021-08-01 10:27] LABS: BASOPHILS % 1.3 % (0.0-2.0); EOSINOPHILS % 2.4 % (0.0-5.0); HEMATOCRIT. 31.5 % (42.0-52.0); HEMOGLOBIN. 10.6 g/dL (14.0-18.0); LYMPHOCYTES % 19.2 % (20.0-50.0); MEAN CORPUSCULAR HEMOGLOBIN 28.9 pg (28.0-32.0); MEAN CORPUSCULAR VOLUME 86.1 fL (80.0-94.0); MEAN PLATELET VOLUME 8.6 fl (7.4-10.4); MONOCYTES % 12.2 % (2.0-8.0); NEUTROPHILS % 64.9 % (40.0-76.0); PLATELET 401 x1000/uL (130-400); RED BLOOD CELL COUNT 3.66 mill/uL (4.7-6.1); RED CELL DISTRIBUTION WIDTH 16.3 % (11.6-14.6)
[2021-08-01 12:00] VITALS: BP 105/66
[2021-08-01 16:00] VITALS: BP 108/63
[2021-08-01] MEDS: ENOXAPARIN 30MG/0.3ML SYR SUBCUT SCH (18:20)
[2021-08-01 20:00] VITALS: BP 92/57
[2021-08-01] MEDS: SENNOSIDES 8.6MG TABLET GT SCH ×2 (21:00→23:00)
[2021-08-02] VITALS: BP 99/59
[2021-08-02 04:00] VITALS: BP 105/69
[2021-08-02] MEDS: LACTULOSE 20G/30ML UDC PO SCH ×4 (05:56→20:36)
[2021-08-02 08:14] VITALS: BP 91/51
[2021-08-02] MEDS: DOCUSATE SODIUM SUGAR FREE 100MG/10ML UDC GT SCH (09:12)
[2021-08-02] MEDS: RISPERIDONE 0.5MG TABLET PO SCH ×2 (09:12→18:34)
[2021-08-02] MEDS: SODIUM CHLORIDE 0.9% 1,000 ML IV SCH ×2 (09:12→19:32)
[2021-08-02] MEDS: MIDODRINE HCL 5MG TABLET PO SCH ×3 (09:12→18:34)
[2021-08-02 12:00] VITALS: BP 91/58
[2021-08-02 16:00] VITALS: BP 97/60
[2021-08-02] MEDS: ENOXAPARIN 30MG/0.3ML SYR SUBCUT SCH (18:34)
[2021-08-02 20:00] VITALS: BP 103/67
[2021-08-02] MEDS: SENNOSIDES 8.6MG TABLET GT SCH (20:36)
[2021-08-03] VITALS: BP 95/56
[2021-08-03] MEDS: SODIUM CHLORIDE 0.9% 1,000 ML IV SCH ×3 (04:30→21:31)
[2021-08-03] MEDS: LACTULOSE 20G/30ML UDC PO SCH ×3 (05:47→21:26)
[2021-08-03 08:00] VITALS: BP 96/62
[2021-08-03] MEDS: DOCUSATE SODIUM SUGAR FREE 100MG/10ML UDC GT SCH (09:00)
[2021-08-03] MEDS: RISPERIDONE 0.5MG TABLET PO SCH ×2 (09:37→17:09)
[2021-08-03] MEDS: MIDODRINE HCL 5MG TABLET PO SCH ×3 (09:37→17:09)
[2021-08-03 12:00] VITALS: BP 93/57
[2021-08-03 16:00] VITALS: BP 86/59
[2021-08-03] MEDS: ENOXAPARIN 30MG/0.3ML SYR SUBCUT SCH ×2 (17:00→17:10)
[2021-08-03 20:00] VITALS: BP 101/56
[2021-08-03] MEDS: SENNOSIDES 8.6MG TABLET GT SCH (21:26)
[2021-08-04] VITALS: BP 108/66
[2021-08-04] MEDS: SODIUM CHLORIDE 0.9% 1,000 ML IV SCH ×4 (00:54→21:07)
[2021-08-04 04:00] VITALS: BP 98/65
[2021-08-04] MEDS: LACTULOSE 20G/30ML UDC PO SCH ×3 (05:11→21:07)
[2021-08-04 08:00] VITALS: BP 94/64
[2021-08-04] MEDS: DOCUSATE SODIUM SUGAR FREE 100MG/10ML UDC GT SCH (09:00)
[2021-08-04] MEDS: MIDODRINE HCL 5MG TABLET PO SCH ×3 (09:01→17:21)
[2021-08-04] MEDS: RISPERIDONE 0.5MG TABLET PO SCH ×2 (09:01→17:21)
[2021-08-04 12:00] VITALS: BP 102/67
[2021-08-04 16:00] VITALS: BP 102/62
[2021-08-04] MEDS: ENOXAPARIN 30MG/0.3ML SYR SUBCUT SCH (17:21)
[2021-08-04 20:00] VITALS: BP 115/66
[2021-08-04] MEDS: SENNOSIDES 8.6MG TABLET GT SCH (21:00)
[2021-08-05] VITALS: BP 108/63
[2021-08-05 04:00] VITALS: BP 106/66
[2021-08-05] MEDS: SODIUM CHLORIDE 0.9% 1,000 ML IV SCH ×2 (04:14→17:38)
[2021-08-05] MEDS: LACTULOSE 20G/30ML UDC PO SCH ×3 (06:20→21:44)
[2021-08-05 08:00] VITALS: BP 107/62
[2021-08-05] MEDS: DOCUSATE SODIUM SUGAR FREE 100MG/10ML UDC GT SCH (09:31)
[2021-08-05] MEDS: MIDODRINE HCL 5MG TABLET PO SCH ×3 (09:31→17:34)
[2021-08-05] MEDS: RISPERIDONE 0.5MG TABLET PO SCH ×2 (09:32→17:34)
[2021-08-05 12:00] VITALS: BP 105/61
[2021-08-05 16:00] VITALS: BP 92/65
[2021-08-05] MEDS: ENOXAPARIN 30MG/0.3ML SYR SUBCUT SCH (17:39)
[2021-08-05 20:00] VITALS: BP 106/64
[2021-08-05] MEDS: SENNOSIDES 8.6MG TABLET GT SCH (21:00)
[2021-08-06] VITALS: BP 98/53
[2021-08-06 04:00] VITALS: BP 117/75
[2021-08-06] MEDS: LACTULOSE 20G/30ML UDC PO SCH ×3 (04:29→22:00)
[2021-08-06 08:00] VITALS: BP 106/61
[2021-08-06] MEDS: DOCUSATE SODIUM SUGAR FREE 100MG/10ML UDC GT SCH (09:00)
[2021-08-06] MEDS: RISPERIDONE 0.5MG TABLET PO SCH ×2 (09:39→16:23)
[2021-08-06] MEDS: MIDODRINE HCL 5MG TABLET PO SCH ×3 (09:40→16:23)
[2021-08-06 12:00] VITALS: BP 98/50
[2021-08-06] MEDS: SODIUM CHLORIDE 0.9% 1,000 ML IV SCH (12:27)
[2021-08-06 16:00] VITALS: BP 119/71
[2021-08-06] MEDS: ENOXAPARIN 30MG/0.3ML SYR SUBCUT SCH (16:24)
[2021-08-06 20:00] VITALS: BP 119/73
[2021-08-06] MEDS: SENNOSIDES 8.6MG TABLET GT SCH (21:00)
[2021-08-07] VITALS: BP 98/49
[2021-08-07 04:00] VITALS: BP 97/64
[2021-08-07] MEDS: LACTULOSE 20G/30ML UDC PO SCH ×3 (05:50→22:00)
[2021-08-07 08:00] VITALS: BP 118/67
[2021-08-07] MEDS: SODIUM CHLORIDE 0.9% 1,000 ML IV SCH ×2 (08:50→18:13)
[2021-08-07] MEDS: RISPERIDONE 0.5MG TABLET PO SCH ×2 (08:51→18:12)
[2021-08-07] MEDS: DOCUSATE SODIUM SUGAR FREE 100MG/10ML UDC GT SCH (08:51)
[2021-08-07] MEDS: MIDODRINE HCL 5MG TABLET PO SCH ×3 (08:51→18:13)
[2021-08-07 12:00] VITALS: BP 107/66
[2021-08-07 16:00] VITALS: BP 103/63
[2021-08-07] MEDS: ENOXAPARIN 30MG/0.3ML SYR SUBCUT SCH (18:12)
[2021-08-07 20:00] VITALS: BP 98/64
[2021-08-07] MEDS: SENNOSIDES 8.6MG TABLET GT SCH (21:00)
[2021-08-08] VITALS: BP 97/56
[2021-08-08 04:00] VITALS: BP 114/75
[2021-08-08] MEDS: SODIUM CHLORIDE 0.9% 1,000 ML IV SCH (04:41)
[2021-08-08] MEDS: LACTULOSE 20G/30ML UDC PO SCH ×3 (04:41→21:36)
[2021-08-08 06:46] LABS: BASOPHILS % 0.3 % (0.0-2.0); EOSINOPHILS % 2.4 % (0.0-5.0); HEMATOCRIT. 33.8 % (42.0-52.0); HEMOGLOBIN. 11.6 g/dL (14.0-18.0); LYMPHOCYTES % 18.2 % (20.0-50.0); MEAN CORPUSCULAR HEMOGLOBIN 28.9 pg (28.0-32.0); MEAN CORPUSCULAR VOLUME 84.1 fL (80.0-94.0); MEAN PLATELET VOLUME 8.2 fl (7.4-10.4); MONOCYTES % 10.8 % (2.0-8.0); NEUTROPHILS % 68.3 % (40.0-76.0); PLATELET 412 x1000/uL (130-400); RED BLOOD CELL COUNT 4.01 mill/uL (4.7-6.1); RED CELL DISTRIBUTION WIDTH 15.7 % (11.6-14.6)
[2021-08-08 07:05] LABS: CHLORIDE 105 mEq/L (98-107)
[2021-08-08 08:00] VITALS: BP 99/55
[2021-08-08] MEDS: DOCUSATE SODIUM SUGAR FREE 100MG/10ML UDC GT SCH (09:00)
[2021-08-08] MEDS: MIDODRINE HCL 5MG TABLET PO SCH ×3 (09:32→17:52)
[2021-08-08] MEDS: RISPERIDONE 0.5MG TABLET PO SCH ×2 (09:32→17:40)
[2021-08-08 16:00] VITALS: BP 108/76
[2021-08-08] MEDS: ENOXAPARIN 30MG/0.3ML SYR SUBCUT SCH (17:40)
[2021-08-08 20:00] VITALS: BP 112/75
[2021-08-08] MEDS: SENNOSIDES 8.6MG TABLET GT SCH (21:00)
[2021-08-09] VITALS (7 sets, daily range): BP systolic 93–112; BP diastolic 59–88
[2021-08-09] MEDS: LACTULOSE 20G/30ML UDC PO SCH ×3 (05:11→21:49)
[2021-08-09] MEDS: MIDODRINE HCL 5MG TABLET PO SCH ×3 (09:08→17:32)
[2021-08-09] MEDS: DOCUSATE SODIUM SUGAR FREE 100MG/10ML UDC GT SCH (09:08)
[2021-08-09] MEDS: RISPERIDONE 0.5MG TABLET PO SCH ×2 (09:08→17:32)
[2021-08-09] MEDS: ENOXAPARIN 30MG/0.3ML SYR SUBCUT SCH (17:37)
[2021-08-09] MEDS: SENNOSIDES 8.6MG TABLET GT SCH (21:00)
[2021-08-10] VITALS: BP 94/60
[2021-08-10 04:00] VITALS: BP 100/60
[2021-08-10] MEDS: LACTULOSE 20G/30ML UDC PO SCH ×4 (05:40→20:59)
[2021-08-10] MEDS: SODIUM CHLORIDE 0.9% 1,000 ML IV SCH ×3 (07:00→22:53)
[2021-08-10 08:00] VITALS: BP 97/63
[2021-08-10] MEDS: DOCUSATE SODIUM SUGAR FREE 100MG/10ML UDC GT SCH (09:47)
[2021-08-10] MEDS: RISPERIDONE 0.5MG TABLET PO SCH ×2 (09:48→17:11)
[2021-08-10] MEDS: MIDODRINE HCL 5MG TABLET PO SCH ×3 (09:48→17:11)
[2021-08-10 11:38] VITALS: BP 102/68
[2021-08-10 16:00] VITALS: BP 103/72
[2021-08-10] MEDS: ENOXAPARIN 30MG/0.3ML SYR SUBCUT SCH (17:12)
[2021-08-10] MEDS: ACETAMINOPHEN 325MG TABLET PO PRN (17:48)
[2021-08-10 20:00] VITALS: BP 100/57
[2021-08-10] MEDS: SENNOSIDES 8.6MG TABLET GT SCH (20:59)
[2021-08-11] VITALS: BP 98/61
[2021-08-11 04:00] VITALS: BP 110/78
[2021-08-11] MEDS: LACTULOSE 20G/30ML UDC PO SCH ×3 (05:21→22:00)
[2021-08-11 08:00] VITALS: BP 111/74
[2021-08-11] MEDS: DOCUSATE SODIUM SUGAR FREE 100MG/10ML UDC GT SCH (08:19)
[2021-08-11] MEDS: MIDODRINE HCL 5MG TABLET PO SCH ×3 (10:11→17:00)
[2021-08-11] MEDS: RISPERIDONE 0.5MG TABLET PO SCH ×2 (10:11→17:00)
[2021-08-11 12:00] VITALS: BP 114/71
[2021-08-11] MEDS: SODIUM CHLORIDE 0.9% 1,000 ML IV SCH ×2 (12:24→23:00)
[2021-08-11 16:00] VITALS: BP 123/72
[2021-08-11] MEDS: ENOXAPARIN 30MG/0.3ML SYR SUBCUT SCH (17:00)
[2021-08-11 20:00] VITALS: BP 107/70
[2021-08-11] MEDS: SENNOSIDES 8.6MG TABLET GT SCH (21:00)
[2021-08-12] VITALS: BP 97/54
[2021-08-12 04:00] VITALS: BP 112/64
[2021-08-12] MEDS: LACTULOSE 20G/30ML UDC PO SCH ×3 (06:00→21:27)
[2021-08-12 08:00] VITALS: BP 106/56
[2021-08-12] MEDS: DOCUSATE SODIUM SUGAR FREE 100MG/10ML UDC GT SCH (09:00)
[2021-08-12] MEDS: RISPERIDONE 0.5MG TABLET PO SCH ×2 (09:40→17:48)
[2021-08-12] MEDS: MIDODRINE HCL 5MG TABLET PO SCH ×3 (09:40→17:48)
[2021-08-12 12:00] VITALS: BP 128/63
[2021-08-12 16:00] VITALS: BP 117/59
[2021-08-12] MEDS: ENOXAPARIN 30MG/0.3ML SYR SUBCUT SCH ×2 (17:00→17:48)
[2021-08-12 20:00] VITALS: BP 93/52
[2021-08-12] MEDS: SENNOSIDES 8.6MG TABLET GT SCH ×2 (21:27→21:30)
[2021-08-13] VITALS: BP 100/57
[2021-08-13 04:00] VITALS: BP 102/67
[2021-08-13 08:00] VITALS: BP 90/57
[2021-08-13] MEDS: DOCUSATE SODIUM SUGAR FREE 100MG/10ML UDC GT SCH (09:14)
[2021-08-13] MEDS: RISPERIDONE 0.5MG TABLET PO SCH ×2 (09:15→17:54)
[2021-08-13] MEDS: MIDODRINE HCL 5MG TABLET PO SCH ×3 (09:15→17:55)
[2021-08-13 12:00] VITALS: BP 99/64
[2021-08-13] MEDS: LACTULOSE 20G/30ML UDC PO SCH ×2 (12:34→20:42)
[2021-08-13 16:00] VITALS: BP 111/73
[2021-08-13] MEDS: ENOXAPARIN 30MG/0.3ML SYR SUBCUT SCH (17:54)
[2021-08-13 20:00] VITALS: BP 104/60
[2021-08-14 04:00] VITALS: BP 99/70
[2021-08-14] MEDS: LACTULOSE 20G/30ML UDC PO SCH ×3 (06:00→22:00)
[2021-08-14 08:00] VITALS: BP 101/62
[2021-08-14] MEDS: DOCUSATE SODIUM SUGAR FREE 100MG/10ML UDC GT SCH (09:40)
[2021-08-14] MEDS: RISPERIDONE 0.5MG TABLET PO SCH ×2 (09:40→18:24)
[2021-08-14] MEDS: MIDODRINE HCL 5MG TABLET PO SCH ×3 (09:40→17:00)
[2021-08-14 12:00] VITALS: BP 114/73
[2021-08-14 14:20] VITALS: BP 146/80
[2021-08-14] MEDS: ENOXAPARIN 30MG/0.3ML SYR SUBCUT SCH (17:00)
[2021-08-14 20:00] VITALS: BP 118/76
[2021-08-14] MEDS: SENNOSIDES 8.6MG TABLET GT SCH (21:00)
[2021-08-15] VITALS: BP 93/53
[2021-08-15 04:00] VITALS: BP 104/67
[2021-08-15] MEDS: LACTULOSE 20G/30ML UDC PO SCH ×3 (06:32→21:25)
[2021-08-15 08:00] VITALS: BP 101/69
[2021-08-15] MEDS: MIDODRINE HCL 5MG TABLET PO SCH ×3 (08:58→17:51)
[2021-08-15] MEDS: DOCUSATE SODIUM SUGAR FREE 100MG/10ML UDC GT SCH (08:58)
[2021-08-15] MEDS: RISPERIDONE 0.5MG TABLET PO SCH ×2 (08:59→17:51)
[2021-08-15 12:00] VITALS: BP 117/71
[2021-08-15 16:00] VITALS: BP 106/62
[2021-08-15] MEDS: ENOXAPARIN 30MG/0.3ML SYR SUBCUT SCH (17:51)
[2021-08-15 20:00] VITALS: BP 104/60
[2021-08-15] MEDS: SENNOSIDES 8.6MG TABLET GT SCH (21:25)
[2021-08-16] VITALS: BP 104/61
[2021-08-16 04:00] VITALS: BP 104/61
[2021-08-16] MEDS: LACTULOSE 20G/30ML UDC PO SCH ×3 (05:18→22:38)
[2021-08-16 08:00] VITALS: BP 89/64
[2021-08-16 08:25] LABS: BASOPHILS % 0.5 % (0.0-2.0); EOSINOPHILS % 1.8 % (0.0-5.0); HEMATOCRIT. 37.6 % (42.0-52.0); HEMOGLOBIN. 12.6 g/dL (14.0-18.0); LYMPHOCYTES % 15.3 % (20.0-50.0); MEAN CORPUSCULAR HEMOGLOBIN 28.4 pg (28.0-32.0); MEAN CORPUSCULAR VOLUME 84.8 fL (80.0-94.0); MEAN PLATELET VOLUME 8.5 fl (7.4-10.4); MONOCYTES % 8.7 % (2.0-8.0); NEUTROPHILS % 73.7 % (40.0-76.0); PLATELET 532 x1000/uL (130-400); RED BLOOD CELL COUNT 4.44 mill/uL (4.7-6.1)
[2021-08-16 08:26] LABS: INR 1.1; PROTHROMBIN TIME 11.3 sec (9.6-11.0)
[2021-08-16] MEDS: RISPERIDONE 0.5MG TABLET PO SCH ×2 (08:39→17:46)
[2021-08-16] MEDS: MIDODRINE HCL 5MG TABLET PO SCH ×3 (08:39→17:46)
[2021-08-16] MEDS: DOCUSATE SODIUM SUGAR FREE 100MG/10ML UDC GT SCH (08:39)
[2021-08-16 08:42] LABS: CHLORIDE 101 mEq/L (98-107)
[2021-08-16 12:28] VITALS: BP 108/75
[2021-08-16 16:00] VITALS: BP 101/66
[2021-08-16] MEDS: DOCUSATE SODIUM 250MG CAPSULE PO SCH (16:15)
[2021-08-16] MEDS ORDERED: POLYETHYLENE GLYCOL 3350 (17GM) 1 DOSE PACK PO NR (16:15)
[2021-08-16] MEDS: ENOXAPARIN 30MG/0.3ML SYR SUBCUT SCH (17:00)
[2021-08-16 20:00] VITALS: BP 120/79
[2021-08-16] MEDS: SENNOSIDES 8.6MG TABLET GT SCH (22:38)
[2021-08-17] VITALS: BP 105/72
[2021-08-17] MEDS: ACETAMINOPHEN 325MG TABLET PO PRN (00:11)
[2021-08-17 04:00] VITALS: BP 103/70
[2021-08-17] MEDS: LACTULOSE 20G/30ML UDC PO SCH ×2 (05:59→13:00)
[2021-08-17 08:00] VITALS: BP 100/64
[2021-08-17] MEDS: DOCUSATE SODIUM 250MG CAPSULE PO SCH (09:43)
[2021-08-17] MEDS: RISPERIDONE 0.5MG TABLET PO SCH ×2 (09:43→17:38)
[2021-08-17] MEDS: MIDODRINE HCL 5MG TABLET PO SCH ×3 (09:43→17:38)
[2021-08-17 12:00] VITALS: BP 101/65
[2021-08-17 16:00] VITALS: BP 94/64
[2021-08-17] MEDS: ENOXAPARIN 30MG/0.3ML SYR SUBCUT SCH (17:00)
[2021-08-17 20:00] VITALS: BP 102/62
[2021-08-17] MEDS: SENNOSIDES 8.6MG TABLET GT SCH (20:06)
[2021-08-18] VITALS: BP 105/85
[2021-08-18 08:00] VITALS: BP 100/68
[2021-08-18] MEDS: DOCUSATE SODIUM 250MG CAPSULE PO SCH (10:14)
[2021-08-18] MEDS: MIDODRINE HCL 5MG TABLET PO SCH ×3 (10:15→17:16)
[2021-08-18] MEDS: RISPERIDONE 0.5MG TABLET PO SCH ×2 (10:15→17:16)
[2021-08-18 12:00] VITALS: BP 107/77
[2021-08-18 16:00] VITALS: BP 103/72
[2021-08-18] MEDS: ENOXAPARIN 30MG/0.3ML SYR SUBCUT SCH (17:00)
[2021-08-18 20:00] VITALS: BP 115/68
[2021-08-18] MEDS: SENNOSIDES 8.6MG TABLET GT SCH (20:06)
[2021-08-19] VITALS: BP 104/63
[2021-08-19 04:00] VITALS: BP 113/69
[2021-08-19 08:00] VITALS: BP 101/63
[2021-08-19] MEDS: RISPERIDONE 0.5MG TABLET PO SCH ×2 (08:40→17:43)
[2021-08-19] MEDS: MIDODRINE HCL 5MG TABLET PO SCH ×3 (08:40→17:43)
[2021-08-19] MEDS: DOCUSATE SODIUM 250MG CAPSULE PO SCH (08:40)
[2021-08-19 12:00] VITALS: BP 99/66
[2021-08-19 16:00] VITALS: BP 111/68
[2021-08-19] MEDS: ENOXAPARIN 30MG/0.3ML SYR SUBCUT SCH (17:43)
[2021-08-19 20:00] VITALS: BP 113/64
[2021-08-19] MEDS: LACTULOSE 20G/30ML UDC PO SCH (20:47)
[2021-08-19] MEDS: SENNOSIDES 8.6MG TABLET GT SCH (20:47)
[2021-08-20] VITALS: BP 100/59
[2021-08-20 04:00] VITALS: BP 103/71
[2021-08-20] MEDS: LACTULOSE 20G/30ML UDC PO SCH ×3 (06:32→22:38)
[2021-08-20 08:00] VITALS: BP 106/74
[2021-08-20] MEDS: MIDODRINE HCL 5MG TABLET PO SCH ×3 (08:49→17:49)
[2021-08-20] MEDS: RISPERIDONE 0.5MG TABLET PO SCH ×2 (08:49→17:50)
[2021-08-20] MEDS: DOCUSATE SODIUM 250MG CAPSULE PO SCH (08:50)
[2021-08-20 12:00] VITALS: BP 100/66
[2021-08-20 16:00] VITALS: BP 100/65
[2021-08-20] MEDS: ENOXAPARIN 30MG/0.3ML SYR SUBCUT SCH (17:49)
[2021-08-20 20:00] VITALS: BP 109/63
[2021-08-20] MEDS: SENNOSIDES 8.6MG TABLET GT SCH (21:00)
[2021-08-21] VITALS: BP 99/59
[2021-08-21 04:00] VITALS: BP 125/60
[2021-08-21] MEDS: LACTULOSE 20G/30ML UDC PO SCH ×3 (06:00→22:00)
[2021-08-21 08:00] VITALS: BP 109/72
[2021-08-21] MEDS: MIDODRINE HCL 5MG TABLET PO SCH ×3 (09:11→18:12)
[2021-08-21] MEDS: DOCUSATE SODIUM 250MG CAPSULE PO SCH (09:11)
[2021-08-21] MEDS: RISPERIDONE 0.5MG TABLET PO SCH ×2 (09:11→18:12)
[2021-08-21 12:00] VITALS: BP 95/60
[2021-08-21 16:00] VITALS: BP 125/77
[2021-08-21] MEDS: ENOXAPARIN 30MG/0.3ML SYR SUBCUT SCH (17:00)
[2021-08-21 20:00] VITALS: BP 112/76
[2021-08-22] VITALS: BP 131/84
[2021-08-22 04:00] VITALS: BP 105/76
[2021-08-22] MEDS: LACTULOSE 20G/30ML UDC PO SCH ×3 (05:26→21:04)
[2021-08-22 08:00] VITALS: BP 117/82
[2021-08-22] MEDS: DOCUSATE SODIUM 250MG CAPSULE PO SCH (08:39)
[2021-08-22] MEDS: MIDODRINE HCL 5MG TABLET PO SCH ×3 (08:39→17:19)
[2021-08-22 12:00] VITALS: BP 128/75
[2021-08-22 16:00] VITALS: BP 101/68
[2021-08-22] MEDS: ENOXAPARIN 30MG/0.3ML SYR SUBCUT SCH (17:19)
[2021-08-22 20:00] VITALS: BP 105/66
[2021-08-23] VITALS: BP 101/62
[2021-08-23 04:00] VITALS: BP 104/64
[2021-08-23] MEDS: LACTULOSE 20G/30ML UDC PO SCH ×3 (05:12→21:20)
[2021-08-23 07:50] LABS: BASOPHILS % 0.7 % (0.0-2.0); EOSINOPHILS % 2.5 % (0.0-5.0); HEMATOCRIT. 41.1 % (42.0-52.0); HEMOGLOBIN. 13.4 g/dL (14.0-18.0); LYMPHOCYTES % 21.9 % (20.0-50.0); MEAN CORPUSCULAR HEMOGLOBIN 27.6 pg (28.0-32.0); MEAN CORPUSCULAR VOLUME 84.5 fL (80.0-94.0); MEAN PLATELET VOLUME 8.4 fl (7.4-10.4); MONOCYTES % 6.7 % (2.0-8.0); NEUTROPHILS % 68.2 % (40.0-76.0); PLATELET 539 x1000/uL (130-400); RED BLOOD CELL COUNT 4.87 mill/uL (4.7-6.1); RED CELL DISTRIBUTION WIDTH 14.8 % (11.6-14.6)
[2021-08-23 07:59] LABS: CHLORIDE 101 mEq/L (98-107)
[2021-08-23 08:00] VITALS: BP 117/70
[2021-08-23] MEDS: DOCUSATE SODIUM 250MG CAPSULE PO SCH (09:00)
[2021-08-23] MEDS: MIDODRINE HCL 5MG TABLET PO SCH ×3 (09:00→16:34)
[2021-08-23 12:00] VITALS: BP 96/72
[2021-08-23 16:00] VITALS: BP 98/68
[2021-08-23] MEDS: ENOXAPARIN 30MG/0.3ML SYR SUBCUT SCH (16:35)
[2021-08-23 20:00] VITALS: BP 123/67
[2021-08-24] VITALS (7 sets, daily range): BP systolic 98–124; BP diastolic 57–80
[2021-08-24] MEDS: LACTULOSE 20G/30ML UDC PO SCH ×3 (06:25→21:07)
[2021-08-24] MEDS: MIDODRINE HCL 5MG TABLET PO SCH ×3 (09:04→17:00)
[2021-08-24] MEDS: DOCUSATE SODIUM 250MG CAPSULE PO SCH (09:04)
[2021-08-24] MEDS: ENOXAPARIN 30MG/0.3ML SYR SUBCUT SCH (17:34)
[2021-08-25] VITALS: BP 106/57
[2021-08-25 04:00] VITALS: BP 110/72
[2021-08-25] MEDS: LACTULOSE 20G/30ML UDC PO SCH ×3 (07:05→22:56)
[2021-08-25 08:00] VITALS: BP 102/64
[2021-08-25] MEDS: MIDODRINE HCL 5MG TABLET PO SCH ×3 (08:45→17:03)
[2021-08-25] MEDS: DOCUSATE SODIUM 250MG CAPSULE PO SCH (08:46)
[2021-08-25 12:00] VITALS: BP 110/69
[2021-08-25 16:00] VITALS: BP 111/72
[2021-08-25] MEDS: ENOXAPARIN 30MG/0.3ML SYR SUBCUT SCH (17:00)
[2021-08-25 20:00] VITALS: BP 117/64
[2021-08-26] VITALS (7 sets, daily range): BP systolic 95–115; BP diastolic 54–75
[2021-08-26] MEDS: LACTULOSE 20G/30ML UDC PO SCH ×3 (06:06→21:42)
[2021-08-26] MEDS: DOCUSATE SODIUM 250MG CAPSULE PO SCH (08:44)
[2021-08-26] MEDS: MIDODRINE HCL 5MG TABLET PO SCH ×3 (08:44→17:24)
[2021-08-26] MEDS: ENOXAPARIN 30MG/0.3ML SYR SUBCUT SCH (17:00)
[2021-08-27] VITALS: BP 103/68
[2021-08-27 04:00] VITALS: BP 123/76
[2021-08-27] MEDS: LACTULOSE 20G/30ML UDC PO SCH ×3 (07:02→21:12)
[2021-08-27 08:00] VITALS: BP 102/69
[2021-08-27] MEDS: MIDODRINE HCL 5MG TABLET PO SCH ×3 (09:13→16:48)
[2021-08-27] MEDS: DOCUSATE SODIUM 250MG CAPSULE PO SCH (09:13)
[2021-08-27 12:00] VITALS: BP 111/76
[2021-08-27 16:00] VITALS: BP 132/85
[2021-08-27] MEDS: ENOXAPARIN 30MG/0.3ML SYR SUBCUT SCH ×2 (16:48→17:00)
[2021-08-27 20:00] VITALS: BP 122/86
[2021-08-28] VITALS: BP 128/62
[2021-08-28] MEDS: LACTULOSE 20G/30ML UDC PO SCH ×3 (06:00→21:20)
[2021-08-28 08:00] VITALS: BP 107/68
[2021-08-28] MEDS: DOCUSATE SODIUM 250MG CAPSULE PO SCH (08:52)
[2021-08-28] MEDS: MIDODRINE HCL 5MG TABLET PO SCH ×3 (08:53→18:54)
[2021-08-28 12:00] VITALS: BP 10/74
[2021-08-28 16:00] VITALS: BP 104/64
[2021-08-28] MEDS: ENOXAPARIN 30MG/0.3ML SYR SUBCUT SCH (18:55)
[2021-08-28 20:00] VITALS: BP 133/84
[2021-08-29] VITALS: BP 130/78
[2021-08-29 04:00] VITALS: BP 105/66
[2021-08-29] MEDS: LACTULOSE 20G/30ML UDC PO SCH ×3 (05:47→21:18)
[2021-08-29 08:00] VITALS: BP 108/78
[2021-08-29] MEDS: DOCUSATE SODIUM 250MG CAPSULE PO SCH (08:27)
[2021-08-29] MEDS: MIDODRINE HCL 5MG TABLET PO SCH ×3 (08:28→17:36)
[2021-08-29 12:00] VITALS: BP 107/70
[2021-08-29 16:00] VITALS: BP 123/76
[2021-08-29] MEDS: ENOXAPARIN 30MG/0.3ML SYR SUBCUT SCH ×2 (17:00→17:36)
[2021-08-29 20:00] VITALS: BP 115/65
[2021-08-30] VITALS: BP 125/72
[2021-08-30 04:00] VITALS: BP 118/72
[2021-08-30] MEDS: LACTULOSE 20G/30ML UDC PO SCH ×3 (06:00→21:10)
[2021-08-30] MEDS: MIDODRINE HCL 5MG TABLET PO SCH ×3 (08:59→17:52)
[2021-08-30] MEDS: DOCUSATE SODIUM 250MG CAPSULE PO SCH (08:59)
[2021-08-30 12:09] VITALS: BP 106/63
[2021-08-30 16:00] VITALS: BP 113/71
[2021-08-30] MEDS: ENOXAPARIN 30MG/0.3ML SYR SUBCUT SCH (17:52)
[2021-08-30 20:00] VITALS: BP 125/65
[2021-08-31] VITALS: BP 112/60
[2021-08-31 04:00] VITALS: BP 122/65
[2021-08-31] MEDS: LACTULOSE 20G/30ML UDC PO SCH ×3 (05:25→21:25)
[2021-08-31 08:00] VITALS: BP 105/64
[2021-08-31] MEDS: DOCUSATE SODIUM 250MG CAPSULE PO SCH (08:41)
[2021-08-31] MEDS: MIDODRINE HCL 5MG TABLET PO SCH ×3 (08:48→17:49)
[2021-08-31 12:00] VITALS: BP 101/69
[2021-08-31 16:00] VITALS: BP 129/71
[2021-08-31 16:35] LABS: BASOPHILS % 0.4 % (0.0-2.0); EOSINOPHILS % 2.3 % (0.0-5.0); HEMATOCRIT. 40.4 % (42.0-52.0); HEMOGLOBIN. 13.6 g/dL (14.0-18.0); LYMPHOCYTES % 23.2 % (20.0-50.0); MEAN CORPUSCULAR HEMOGLOBIN 28.3 pg (28.0-32.0); MEAN CORPUSCULAR VOLUME 83.8 fL (80.0-94.0); MEAN PLATELET VOLUME 8.4 fl (7.4-10.4); MONOCYTES % 13.5 % (2.0-8.0); NEUTROPHILS % 60.6 % (40.0-76.0); PLATELET 526 x1000/uL (130-400); RED BLOOD CELL COUNT 4.82 mill/uL (4.7-6.1)
[2021-08-31 16:59] LABS: CHLORIDE 104 mEq/L (98-107)
[2021-08-31] MEDS: ENOXAPARIN 30MG/0.3ML SYR SUBCUT SCH ×2 (17:00→17:48)
[2021-08-31 20:00] VITALS: BP 127/74
[2021-09-01] VITALS: BP 114/76
[2021-09-01 04:00] VITALS: BP 100/67
[2021-09-01] MEDS: LACTULOSE 20G/30ML UDC PO SCH ×3 (05:13→21:47)
[2021-09-01 08:00] VITALS: BP 96/68
[2021-09-01] MEDS: DOCUSATE SODIUM 250MG CAPSULE PO SCH (09:00)
[2021-09-01] MEDS: MIDODRINE HCL 5MG TABLET PO SCH (09:37)
[2021-09-01] MEDS ORDERED: LIDOCAINE HCL 1% 20ML VIAL (Pyxis) INJ ONE (11:20)
[2021-09-01 12:00] VITALS: BP 105/67
[2021-09-01] MEDS: ENOXAPARIN 30MG/0.3ML SYR SUBCUT SCH (17:22)
[2021-09-01 20:00] VITALS: BP 116/60
[2021-09-02] VITALS: BP 103/59
[2021-09-02 04:00] VITALS: BP 124/78
[2021-09-02 08:00] VITALS: BP 128/76
[2021-09-02] MEDS: LACTULOSE 20G/30ML UDC PO SCH ×3 (08:21→22:00)
[2021-09-02] MEDS: DOCUSATE SODIUM 250MG CAPSULE PO SCH (08:22)
[2021-09-02 12:00] VITALS: BP 120/75
[2021-09-02 16:00] VITALS: BP 123/66
[2021-09-02] MEDS: ENOXAPARIN 30MG/0.3ML SYR SUBCUT SCH (17:55)
[2021-09-02 20:00] VITALS: BP 116/76
[2021-09-03] VITALS: BP 124/78
[2021-09-03 04:00] VITALS: BP 115/75
[2021-09-03] MEDS: LACTULOSE 20G/30ML UDC PO SCH ×2 (06:27→13:31)
[2021-09-03 08:00] VITALS: BP 110/74
[2021-09-03] MEDS: DOCUSATE SODIUM 250MG CAPSULE PO SCH (09:07)
[2021-09-03 12:00] VITALS: BP 126/73
[2021-09-03 14:51] VITALS: BP 126/73
[2021-09-03 16:16] VITALS: BP 125/87
[2021-09-03] MEDS: ENOXAPARIN 30MG/0.3ML SYR SUBCUT SCH (17:25)
== END 2021-09-03 18:11 | DRG 720 ==
LOC: ER 13:28 → 6EST 20:07 → EDBEDREQTM 20:10 → EDBEDREQ 20:10 → MICUSO 22:39 → 6EST 07-03 08:59 → 8WST 07-03 15:01 → 6EST 07-08 17:03
PROVIDERS: ADMIT Internal Medicine; ATTEND Internal Medicine
PROC: 0DH63UZ Insertion of Feeding Device into Stomach, Percutaneous Approach (ICD-10-PCS; principal; 2021-07-07)
PROC: 5A09357 Assistance with Respiratory Ventilation, Less than 24 Consecutive Hours, Continuous Positive Airway Pressure (ICD-10-PCS; 2021-08-13)
PROC: 0DP6XUZ Removal of Feeding Device from Stomach, External Approach (ICD-10-PCS; 2021-08-16)
DX: A41.9 Sepsis, unspecified organism (principal); N17.0 Acute kidney failure with tubular necrosis; E43 Unspecified severe protein-calorie malnutrition; G92.8 Other toxic encephalopathy; E87.0 Hyperosmolality and hypernatremia; G93.89 Other specified disorders of brain; E87.8 Other disorders of electrolyte and fluid balance, not elsewhere classified; E88.09 Other disorders of plasma-protein metabolism, not elsewhere classified; K56.7 Ileus, unspecified; F03.90 Unspecified dementia, unspecified severity, without behavioral disturbance, psychotic disturbance, mood disturbance, and anxiety; F20.9 Schizophrenia, unspecified; J44.9 Chronic obstructive pulmonary disease, unspecified; G40.909 Epilepsy, unspecified, not intractable, without status epilepticus; E86.0 Dehydration; N40.0 Benign prostatic hyperplasia without lower urinary tract symptoms; R62.7 Adult failure to thrive; Z20.822 Contact with and (suspected) exposure to COVID-19; Z93.1 Gastrostomy status; R13.12 Dysphagia, oropharyngeal phase; Z86.73 Personal history of transient ischemic attack (TIA), and cerebral infarction without residual deficits; K29.50 Unspecified chronic gastritis without bleeding; Z68.1 Body mass index [BMI] 19.9 or less, adult
CPT/HCPCS: 36415; 70551; 71045; 74018; 80048; 80053; 80305; 80320; 81003; 82140; 82962; 85025; 87015; 87045; 87426; 87427; 87449; 92610; 93970; 97116; 97161; 97164; 97166; 97530; 97535; 99285; C1893; J0696; J1630; J1650; J1953; J2060; J2250; J2765; J3010; J3411; J3490; J7030; J7040; J7042; J7060; J7070; A4315; G0480